=== PATIENT | female | born 1990 | race Caucasian/White ===

== ENCOUNTER → 2020-04-05 13:37 | Outpatient (BNVA) | payer MEDICAID, SELFPAY | PROVIDERS: Visit Provider Internal Medicine | DX: E10.65 Type 1 diabetes mellitus with hyperglycemia (principal); E78.5 Hyperlipidemia, unspecified; I10 Essential (primary) hypertension | CPT/HCPCS: 82947; 99212 ==

== ENCOUNTER 2020-07-09 14:10 | Outpatient (REF) | payer MEDICAID, SELFPAY ==
[2020-07-09 15:58] LABS: Estimated Average Glucose 154 mg/dL
[2020-07-09 16:13] LABS: Alanine Aminotransferase 12 U/L (0-31); Albumin Level 4.3 g/dL (3.5-5.0); Alkaline Phosphatase 98 U/L (39-117); Anion Gap 11 (12-20); Aspartate Amino Transferase 18 U/L (5-31); Bilirubin Total 0.7 mg/dL (0.0-1.0); Blood Urea Nitrogen 14 mg/dL (9-16); Calcium 9.5 mg/dL (8.4-10.2); Carbon Dioxide 28 mmol/L (22-29); Chloride 104 mmol/L (96-108); Cholesterol 204 mg/dL; Estimated Glomerular Filt Rate > 60; Glucose Random 135 mg/dL (60-115); HDL Cholesterol 51 mg/dL; LDL Cholesterol Calculated 140 mg/dl; Potassium 4.1 mmol/L (3.3-5.1); Sodium 139 mmol/L (135-145); Total Protein 7.7 g/dL (6.5-8.0); Triglycerides 68 mg/dL
[2020-07-09 16:36] LABS: Vitamin D 25-OH Total 21.6 ng/mL (>30)
[2020-07-09 16:41] LABS: Creatinine Urine 117.27 mg/dL; Microalbum/Creatinine Ratio Ur 5.9 ug/mg cr
[2020-07-10 05:32] LABS: LDL Cholesterol Direct 131 mg/dL (<100)
== END 2020-07-09 14:11 | disposition home or self-care (01) ==
LOC: HO.LAB 14:10
PROVIDERS: Visit Provider Internal Medicine
DX: E10.65 Type 1 diabetes mellitus with hyperglycemia (principal); E55.9 Vitamin D deficiency, unspecified; I10 Essential (primary) hypertension; E78.5 Hyperlipidemia, unspecified; Z46.81 Encounter for fitting and adjustment of insulin pump; Z79.899 Other long term (current) drug therapy; Z71.89 Other specified counseling
CPT/HCPCS: 36415; 80053; 80061; 82043; 82306; 82947; 83036; 83721; 99212

== ENCOUNTER 2020-08-07 14:25 | Outpatient (REF) | payer MEDICAID, SELFPAY ==
[2020-08-08 09:20] LABS: SARS COV2 PCR INHOUSE NEGATIVE (Negative)
== END 2020-08-07 14:26 | disposition home or self-care (01) ==
LOC: HO.LAB 14:25
PROVIDERS: Visit Provider Internal Medicine
DX: Z20.822 Contact with and (suspected) exposure to COVID-19 (principal)
CPT/HCPCS: C9803; U0003

== ENCOUNTER → 2020-10-15 13:38 | Outpatient (BNVA) | payer MEDICAID, SELFPAY | PROVIDERS: Visit Provider Internal Medicine | DX: E10.65 Type 1 diabetes mellitus with hyperglycemia (principal); E78.5 Hyperlipidemia, unspecified; I10 Essential (primary) hypertension; Z79.4 Long term (current) use of insulin | CPT/HCPCS: 82947; 83036; 99212 ==

== ENCOUNTER → 2021-08-21 13:54 | Outpatient (BNVA) | payer MEDICAID, SELFPAY | PROVIDERS: Visit Provider Internal Medicine Endocrinology, Diabetes & Metabolism | DX: E10.65 Type 1 diabetes mellitus with hyperglycemia (principal); Z96.41 Presence of insulin pump (external) (internal) | CPT/HCPCS: 82947; 83036; 99212 ==

== ENCOUNTER → 2021-12-11 13:59 | Outpatient (BNVA) | payer MEDICAID, SELFPAY | PROVIDERS: Visit Provider Registered Nurse Diabetes Educator | DX: Z46.81 Encounter for fitting and adjustment of insulin pump (principal); E10.65 Type 1 diabetes mellitus with hyperglycemia | CPT/HCPCS: 99211 ==

== ENCOUNTER → 2022-03-19 14:59 | Outpatient (BNVA) | payer MEDICAID, SELFPAY | PROVIDERS: Visit Provider Internal Medicine Endocrinology, Diabetes & Metabolism | DX: E10.65 Type 1 diabetes mellitus with hyperglycemia (principal); I10 Essential (primary) hypertension; E78.5 Hyperlipidemia, unspecified; E55.9 Vitamin D deficiency, unspecified; Z79.4 Long term (current) use of insulin; Z96.41 Presence of insulin pump (external) (internal); Z46.81 Encounter for fitting and adjustment of insulin pump | CPT/HCPCS: 82947; 83036; 99212 ==

== ENCOUNTER 2022-03-21 10:08 | Outpatient (REF) | payer MEDICAID, SELFPAY ==
[2022-03-21 12:36] LABS: Anion Gap 12 (12-20); Blood Urea Nitrogen 16 mg/dL (9-16); Calcium 9.4 mg/dL (8.4-10.2); Carbon Dioxide 27 mmol/L (22-29); Chloride 105 mmol/L (96-108); Cholesterol 191 mg/dL; Estimated Glomerular Filt Rate > 60; Glucose Random 118 mg/dL (60-115); HDL Cholesterol 46 mg/dL; LDL Cholesterol Calculated 127 mg/dl; Potassium 4.4 mmol/L (3.3-5.1); Sodium 140 mmol/L (135-145); Triglycerides 90 mg/dL
[2022-03-21 12:58] LABS: Estimated Average Glucose 148 mg/dL; Hemoglobin A1c % 6.8 %
[2022-03-21 13:00] LABS: Free T4 (Free Thyroxine) 0.97 ng/dL (0.71-1.85); Thyroid Stimulating Hormone 1.87 uIU/mL (0.32-4.0)
[2022-03-21 14:58] LABS: Creatinine Urine 102.46 mg/dL; Microalbumin Urine < 5.0 mg/L
== END 2022-03-21 10:09 | disposition home or self-care (01) ==
LOC: HO.WFDLDS 10:08
PROVIDERS: Visit Provider Internal Medicine Endocrinology, Diabetes & Metabolism
DX: E11.65 Type 2 diabetes mellitus with hyperglycemia (principal)
CPT/HCPCS: 36415; 80048; 80061; 82043; 83036; 84439; 84443

== ENCOUNTER → 2022-06-18 15:19 | Outpatient (BNVA) | payer MEDICAID, SELFPAY | PROVIDERS: Visit Provider Internal Medicine Endocrinology, Diabetes & Metabolism | DX: E10.65 Type 1 diabetes mellitus with hyperglycemia (principal); Z96.41 Presence of insulin pump (external) (internal) | CPT/HCPCS: 82947; 83036; 99212 ==

== ENCOUNTER 2023-03-04 14:55 | Outpatient (AMB) | payer MEDICAID, SELFPAY ==
--- NOTE | 2023-03-04 14:57 | A.OFFVIS_ITS ---
Intake Vital Signs 03/04/23 15:00 Height 5 ft 2.5 in Weight 195 lb 5.273 oz BMI 35.2 BP 104/76 Blood Pressure Location Lt brachial Position Sitting Pulse 111 H Pulse Source Pulse Oximeter Intake Visit Reasons: f/u Type 1 DM Intake Note: Patient presents today to follow up on Type Diabetes Mellitus. Last Diabetic Eye exam: 10/23/22 Last Podiatry Visit: None Random Glucose: 226 mg/dl HgA1C:6.8% Supervisor [place] Required: No Accompanied by: Self / Same As Patient Allergies dexamethasone [From DECADRON] Adverse Reaction (Intermediate, Verified 03/04/23 15:09) BURNING SENSATION HPI HPI Comments History of Present Illness Details 32 YO F with PMHx T1DM who is seen in F/U for T1DM . Initially diagnosed with T1DM at the age of 3. Current regimen: Humalog in pump Pump/Sensor: Currently using Tandem insulin pump with Dexcom G6 sensor. Pump settings: Basal: 0:00 - 1.8 units/hr 5:30 - 1.8 units/hr 130PM= 2.1 23:00 - 1.7 units/hr Total Daily Basal =60.1 units ICR: 10 ISF: 40 Goal : 120 Active insulin time: 3 hours Average total daily dose of insulin is 56.5 units/day, with 67% basal and 33% bolus. and 4% correction bolus She changes her site every 3-4 days. Has the DEXCOM G6. 7 days of data downloaded from February 09/2023 to 03/04/2023 This reveals an average sugar of 137 , with SD of 52. . She is above goal 13% of the time, at goal 78% of the time, and below goal 3% of the time. Has hypoglycemia every 2 days Treats lows with rapid sugar. Has DEXCOM to check sugar after. Has a history of hypoglycemic unawareness. Review of CGM data reveals that she is having many lows overnight, and often bolusing herself long after she starts eating which leads to daytime hyperglycemia. Has eyes checked yearly, last eye exam 10/23/2022 , denies retinopathy. Has consistently refused since then. Denies Neuropathy. Has Nephropathy, not on ALEXSANDER/ARB as she is actively having children. UAC 5.9 07/09/2020. No history of CAD. Had diabetes education. Has not been using bolus wizard correctly. Does know how to count carbs. She has had severe hypoglycemic episodes, most recently in 2019. Labs: Laboratory Tests 07/09/20 07/09/20 07/09/20 15:41 15:41 15:41 Creatinine 0.91 Estimated GFR > 60 Glucose (Clinic) Hgb A1c (Clinic) LDL Cholesterol Di rect 131 H 25-OH Vitamin D To kim 21.6 Microalb/Creat Rat io 5.9 10/15/20 10/15/20 13:55 14:04 Creatinine Estimated GFR Glucose (Clinic) 344 H Hgb A1c (Clinic) 7.0 H LDL Cholesterol Di rect 25-OH Vitamin D To kim Microalb/Creat Rat io PFSH Medical History HLD (hyperlipidemia) HTN (hypertension) T1DM (type 1 diabetes mellitus) Vitamin D deficiency Surgical History Hx of tooth extraction Family History Father No problems noted. Mother CTS (carpal tunnel syndrome) Social History Household Members: Children Household Members Other:: daughter Alcohol intake: former Patient Tobacco Use Status: Former Tobacco user Physical Exam Vital Signs: Last Vital Signs Pulse 111 H 03/04/23 15:00 BP 104/76 03/04/23 15:00 BMI result Body Mass Index 35.2 Absence of Cushingoid features. Absence of acromegalic features. Neck exam reveals nl size thyroid about 15 gms. No thyroid nodules palpable. No carotid bruits present. Lungs CTA. Heart S1 S2, Reg R/R. No M/R/ G. Skin exam reveals absence of vitiligo or acanthosis nigricans. Abdominal exam reveals Soft NT/ND with NA BS. No organomegaly present. Extrem Other: Visual exam of foot performed. No ulcerations or open lesions. No onchomycosis, no callouses.Pulses 2 + distally. Sensation intact to monofilament exam. Vibratory sensation sensed 10 seconds in right, 10 seconds in left with 128 Hz tuning fork Results Reviewed Results Reviewed: 03/04/23 15:06 Glucose, Whole Blood Routine Laboratory Last Values Glucose (Clinic) 226 mg/dL (60-115) H 03/04/23 15:06 Assessment & Plan Assessment & Plan (1) T1DM (type 1 diabetes mellitus): Code(s): E10.9 - Type 1 diabetes mellitus without complications Qualifiers: Diabetes mellitus complication status: with hyperglycemia Qualified Code(s): E10.65 - Type 1 diabetes mellitus with hyperglycemia Plan: This is a 31-year-old female with a history of type 1 diabetes being t reated with an Omnipod pump and Dexcom G6 sensor with excellent glycemic control but hypoglycemia and no known microvascular or macrovascular complications. Plan is to have the patient wear the sensor more often. We could not make any adjustments to the pump settings because of lack of data. I did tell the patient to enter carbohydrates and bolus prior to the meal. I also will have a follow-up with the unit educator and see the electron beam welder setter to fine tune carbohydrate counting. Lastly, I refilled glucagon nasal spray. Orders: Referrals Nutrition/Dietitian Referral E10.9 - Type 1 diabetes mellitus without complications Medications: New insulin glargine (Lantus Solostar U-100 Insulin) 40 units (0.4 mL) subcut DAILY 30 mL 5RF glucagon 3 mg/actuation (Baqsimi) 3 mg intranasal ONCE 2 ea 4RF Coding Level of Care Code Est Pt Level 4 (46725) Diagnoses Type 1 diabetes mellitus with hyperglycemia E10.65 Diabetes mellitus complication status: with hyperglycemia
[2023-03-04 15:00] VITALS: BP 104/76; PULSE 111; BMI 35.2
[2023-03-04 15:11] LABS: Glucose, Whole Blood 226 mg/dL (60-115)
== END 2023-03-04 15:47 | disposition home or self-care (01) ==
PROVIDERS: PCP Registered Nurse; Visit Provider Internal Medicine Endocrinology, Diabetes & Metabolism
DX: E10.9 Type 1 diabetes mellitus without complications (principal); E10.65 Type 1 diabetes mellitus with hyperglycemia
CPT/HCPCS: 99214

== ENCOUNTER → 2023-03-04 14:55 | Outpatient (BNVA) | payer MEDICAID, SELFPAY | PROVIDERS: Visit Provider Internal Medicine Endocrinology, Diabetes & Metabolism | DX: E10.65 Type 1 diabetes mellitus with hyperglycemia (principal); Z96.41 Presence of insulin pump (external) (internal) | CPT/HCPCS: 82947; 83036; 99212 ==

== ENCOUNTER 2023-05-06 13:25 | Outpatient (AMB) | payer MEDICAID, SELFPAY ==
--- NOTE | 2023-05-06 13:27 | A.OFFVIS_ITS ---
Intake VS Expanded 05/06/23 13:31 05/13/23 13:06 Height 5 ft 2.5 in 5 ft 2.5 in Weight 190 lb 0.615 oz 190 lb BMI 34.2 34.2 Intake Visit Reasons: f/u Type1 DM/CONFIRMED Allergies dexamethasone [From DECADRON] Adverse Reaction (Intermediate, Verified 03/04/23 15:09) BURNING SENSATION HPI Nutrition Presentation Details Pt presents for MNT for Type 1 DM Typical meal intake Tea in am , no sugar added 03-15 3 small croissant with bologna a nd 2 eggs snack: apple, dinner roll with butter or plain and drinks water 5-7 pm : home made meal or fast food : fried chicken breaded with fries, diet s patricia or water or rice/medina/chicken or chicken salad with vegetables or bk fries with burger snack: ice cream or fruit or crackers with p.b or cereal not carb counting physical activity: daily life activities ETOH: occ smoking denies YFM-Uzdvgzo-Lb.Jeor Equation Height 5 ft 2.5 in Weight 190 lb Resting Metabolic Rate 1539.63 Calculated Activity Level Sedentary Calories Needed to Maintain Weight 1847.56 Diagnosis Nutrition problem #1 excessive energy intake (from high fat foods ) As related to (etiology) #1 diagnosis (Type 1 DM, BMI at 34.2 on 05/2023) As evidenced by (sign/symptom) #1 food recall Monitoring/Goals Nutrition problem monitoring weight (low fat food choices ) Learning/Education Readiness to learn good Stages of change preparation Educational materials provided Yes (meal planning , low fat food options) Most Recent Diabetes Results: Microalb/Creat Ratio TNP 03/21/22 Cholesterol 191 mg/dL 03/21/22 HDL Cholesterol 46 mg/dL 03/21/22 Triglycerides 90 mg/dL 03/21/22 Creatinine 0.83 mg/dL (0.5-1.4) 03/21/22 Blood Urea Nitrogen 16 mg/dL (9-16) 03/21/22 Sodium 140 mmol/L (135-145) 03/21/22 Potassium 4.4 mmol/L (3.3-5.1) 03/21/22 Chloride 105 mmol/L (96-108) 03/21/22 Carbon Dioxide 27 mmol/L (22-29) 03/21/22 Calcium 9.4 mg/dL (8.4-10.2) 03/21/22 [facility] Medical History HLD (hyperlipidemia) HTN (hypertension) T1DM (type 1 diabetes mellitus) Vitamin D deficiency Surgical History Hx of tooth extraction Family History Father No problems noted. Mother CTS (carpal tunnel syndrome) Social History Household Members: Children Household Members Other:: daughter Alcohol intake: former Patient Tobacco Use Status: Former Tobacco user Assessment & Plan Assessment & Plan (1) T1DM (type 1 diabetes mellitus): Code(s): E10.9 - Type 1 diabetes mellitus without complications Qualifiers: Diabetes mellitus complication status: with hyperglycemia Qualified Code(s): E10.65 - Type 1 diabetes mellitus with hyperglycemia Plan: Wt: 86 Kg ( ) Est kcal needs as per MSJ: 1800 (40% carb, 30% protein/fat) Est fluid needs as per 25-30 ml/d: 2600 Est prot per day as per 1 g/kg bw: 86 Recommend fiber intake : 8-10 g per day and gradually increase to 25-28 g per day for women and 35-38 g for men or as tolerated Recommend sodium intake per day : less than 2000 mg Educated patient on: ( R = reviewed V = verbalizes understanding N/R = needs review N/A = not applicable * Food sources of carbohydrate, adequate serving sizes and its role in various health conditions: V * Differences between complex carbohydrates a simple carbohydrates, role of fiber in diet: V * Lean protein sources of foods: R V * Differences between types of fats and role in diet (mono on saturated fat fatty acids, saturated fatty acids, trans fats): R * Food sources of sodium in salt and healthy modifications for heart health in kidney health: NR * Vitamins and minerals: R * Healthy plate method concept: R V * Physical activity: Benefits a precaution: R V * Hypoglycemia protocol (rule of 15): V * Dietary prevention of Hyperglycemia: V Patient Instructions: Reduce on saturated /trans fats (ultra processed foods, sauces, gravies, butter, fried foods) Keep hydrated by choosing water, fruit/veg/herb infused water, aim at 5-6 cups/day see low fat meal /snack options Coding Level of Care Code Nutr Indiv Intake (55313) Diagnoses Type 1 diabetes mellitus with hyperglycemia E10.65 Diabetes mellitus complication status: with hyperglycemia Time Spent (min) 30
[2023-05-06 13:31] VITALS: BMI 34.2
[2023-05-13 13:06] VITALS: BMI 34.2
== END 2023-05-06 13:54 | disposition home or self-care (01) ==
PROVIDERS: PCP Registered Nurse; Visit Provider Dietitian, Registered
DX: E10.65 Type 1 diabetes mellitus with hyperglycemia (principal)

== ENCOUNTER → 2023-05-06 13:25 | Outpatient (BNVA) | payer MEDICAID, SELFPAY | PROVIDERS: PCP Registered Nurse; Visit Provider Dietitian, Registered | DX: E10.65 Type 1 diabetes mellitus with hyperglycemia (principal) | CPT/HCPCS: 97802 ==

== ENCOUNTER 2023-05-08 12:59 | Outpatient (AMB) | payer MEDICAID, SELFPAY ==
--- NOTE | 2023-05-08 13:40 | MHC.AMDMED ---
Intake Intake Visit Reasons: T1DM /CONFIRMED Noc Analyst Required: No Accompanied by: Self / Same As Patient Allergies dexamethasone [From DECADRON] Adverse Reaction (Intermediate, Verified 03/04/23 15:09) BURNING SENSATION HPI Comprehensive Diabetes Asmnt Most Recent Diabetes Results: Hemoglobin A1c 6.7 % 09/06/18 Microalb/Creat Ratio TNP 03/21/22 Cholesterol 191 mg/dL 03/21/22 HDL Cholesterol 46 mg/dL 03/21/22 Triglycerides 90 mg/dL 03/21/22 Creatinine 0.83 mg/dL (0.5-1.4) 03/21/22 Blood Urea Nitrogen 16 mg/dL (9-16) 03/21/22 Sodium 140 mmol/L (135-145) 03/21/22 Potassium 4.4 mmol/L (3.3-5.1) 03/21/22 Chloride 105 mmol/L (96-108) 03/21/22 Carbon Dioxide 27 mmol/L (22-29) 03/21/22 Calcium 9.4 mg/dL (8.4-10.2) 03/21/22 AST 18 U/L (5-31) 07/09/20 ALT 12 U/L (0-31) 07/09/20 Total Protein 7.7 g/dL (6.5-8.0) 07/09/20 Albumin 4.3 g/dL (3.5-5.0) 07/09/20 [facility] Medical History HLD (hyperlipidemia) HTN (hypertension) T1DM (type 1 diabetes mellitus) Vitamin D deficiency Surgical History Hx of tooth extraction Family History Father No problems noted. Mother CTS (carpal tunnel syndrome) Social History Household Members: Children Household Members Other:: daughter Alcohol intake: former Patient Tobacco Use Status: Former Tobacco user Assessment & Plan Assessment & Plan (1) T1DM (type 1 diabetes mellitus): Code(s): E10.9 - Type 1 diabetes mellitus without complications Qualifiers: Diabetes mellitus complication status: with hyperglycemia Qualified Code(s): E10.65 - Type 1 diabetes mellitus with hyperglycemia Plan: Patient presents for pump training for T-Slim pump with control IQ integrated with Dexcom G6 The following topics were reviewed today: -Pump therapy basic concepts: Basal/bolus, insulin to carb ratio, correction factor, insulin on board - upgraded insulin pump to be compatible with Dexcom G7 ??? High Alert: 200mg/dl ??? Low Alert: 80 mg/dl Patient only has 4 days worth of sensor data patient changing insulin set an average of 4.5 days 79% of insulin is delivered through basal 16% is delivered through bolus for meals 5% correction bolus reviewed with patient how to treat low blood sugar with rule of 15s Reviewed with patient basic carb counting skills, downloaded [employer] it [place] on patient's cellphone. Demonstrated to patient how to look up carbohydrate content of foods Insulin delivery settings Program insulin to carb ratio, correction factor, target blood glucose, suspend or resume insulin delivery, bolus limit and basal limit settings Inserting infusion set or starting pod Troubleshooting after starting new pod or inserting new insulin set: Occlusion, adhesive tape sensitivity, redness Check BG 2 hours after site change Safety information: Patient was able to insert insulin set today without difficulty. Patient understands the basic concepts of pump therapy, how to give insulin for meals and snacks, how to troubleshoot for hyper and hypoglycemia. Setting verified by [facility] Basal rate(s) (units/hour) : 12 AM to 5:30 AM? 1.8 units / hr 5:30 AM? to 1:30 PM? 1.8 units / hr 1:30 PM to 9:30 PM 2.10 units / hr 9:30 PM to 12 AM 1.9 units / hr Bolus setting Insulin Carbohydrate Ratio (s) 12 AM to 12 AM 1:10 Correction Factor / Sensitivity Factor 12 AM to 12 AM 1:40 Active Insulin Time:? 3 hours Target(s): 12 AM to 12 AM 120 Patient will follow up with [facility] as instructed Patient will contact [facility] with questions or concerns, patient given IT number to support in any technical issues related to insulin pump Patient Instructions: If patient brings tandem log in information we can upgrade patient's insulin pump at next visit to be compatible with Dexcom G7 Follow-up with clinical trial educator in 1 month Coding Level of Care Code Est Pt Level 1 (63933) Diagnoses Type 1 diabetes mellitus with hyperglycemia E10.65 Diabetes mellitus complication status: with hyperglycemia
== END 2023-05-08 13:50 | disposition home or self-care (01) ==
PROVIDERS: PCP Registered Nurse; Visit Provider Registered Nurse Diabetes Educator
DX: E10.65 Type 1 diabetes mellitus with hyperglycemia (principal)

== ENCOUNTER → 2023-05-08 12:59 | Outpatient (BNVA) | payer MEDICAID, SELFPAY | PROVIDERS: PCP Registered Nurse; Visit Provider Registered Nurse Diabetes Educator | DX: Z46.81 Encounter for fitting and adjustment of insulin pump (principal); E10.65 Type 1 diabetes mellitus with hyperglycemia; Z79.4 Long term (current) use of insulin | CPT/HCPCS: 99211 ==

== ENCOUNTER 2023-06-15 13:03 | Outpatient (AMB) | payer MEDICAID, SELFPAY ==
--- NOTE | 2023-06-15 13:43 | A.OFFVIS_ITS ---
Intake Intake Visit Reasons: T1DM It Sales Executive Required: No Accompanied by: Other Relationship Allergies dexamethasone [From DECADRON] Adverse Reaction (Intermediate, Verified 03/04/23 15:09) BURNING SENSATION HPI Comprehensive Diabetes Asmnt Most Recent Diabetes Results: No Data to Display [facility] Medical History HLD (hyperlipidemia) HTN (hypertension) T1DM (type 1 diabetes mellitus) Vitamin D deficiency Surgical History Hx of tooth extraction Family History Father No problems noted. Mother CTS (carpal tunnel syndrome) Social History Household Members: Children Household Members Other:: daughter Alcohol intake: former Patient Tobacco Use Status: Former Tobacco user Assessment & Plan Assessment & Plan (1) T1DM (type 1 diabetes mellitus): Code(s): E10.9 - Type 1 diabetes mellitus without complications Qualifiers: Diabetes mellitus complication status: with hyperglycemia Qualified Code(s): E10.65 - Type 1 diabetes mellitus with hyperglycemia Plan: Patient presents for pump training for T-Slim pump with control IQ integrated with Dexcom [employer] The following topics were reviewed today: -Pump therapy basic concepts: Basal/bolus, insulin to carb ratio, correction factor, insulin on board - upgraded insulin pump to be compatible with Dexcom G7 ??? High Alert: 200mg/dl ??? Low Alert: 80 mg/dl Patient's average glucose for the past 14 days 138 mg/dL Patient above target 21% Patient at target 73% Patient below target 6% Discussed with patient percentage hypoglycemic events, patient reports she has caused several I taking manual injections not correcting through insulin pump. Demonstrate to patient how she can calculate her own correction dose if she does not have access to insulin pump. Reviewed with patient how to treat hypoglycemia with rule of 15s Patient still has not upgraded insulin pump to Dexcom G7 patient changing insulin set an average of 4-6 days, explained to patient the importance of changing insulin delivery set every 72 hours for optimal glucose control 59% of insulin is delivered through basal 36% is delivered through bolus for meals 4% correction bolus reviewed with patient how to treat low blood sugar with rule of 15s Reviewed with patient basic carb counting skills, downloaded lose it [place] on patient's cellphone. Demonstrated to patient how to look up carbohydrate content of foods Insulin delivery settings Program insulin to carb ratio, correction factor, target blood glucose, suspend or resume insulin delivery, bolus limit and basal limit settings Inserting infusion set or starting pod Troubleshooting after starting new pod or inserting new insulin set: Occlusion, adhesive tape sensitivity, redness Check BG 2 hours after site change Safety information: Patient was able to insert insulin set today without difficulty. Patient understands the basic concepts of pump therapy, how to give insulin for meals and snacks, how to troubleshoot for hyper and hypoglycemia. Setting verified by [facility], no changes made to pump settings Basal rate(s) (units/hour) : 12 AM to 5:30 AM? 1.8 units / hr 5:30 AM? to 1:30 PM? 1.8 units / hr 1:30 PM to 9:30 PM 2.10 units / hr 9:30 PM to 12 AM 1.9 units / hr Bolus setting Insulin Carbohydrate Ratio (s) 12 AM to 12 AM 1:10 Correction Factor / Sensitivity Factor 12 AM to 12 AM 1:40 Active Insulin Time:? 3 hours Target(s): 12 AM to 12 AM 120 Patient will follow up with [facility] as instructed Patient will contact [facility] with questions or concerns, patient given IT number to support in any technical issues related to insulin pump Patient Instructions: Follow-up with hospital educator in 3 months If you need assistance in upgrading insulin pump to be compatible with Dexcom G7 contact hospital educator Coding Level of Care Code Est Pt Level 1 (58662) Diagnoses Type 1 diabetes mellitus with hyperglycemia E10.65 Diabetes mellitus complication status: with hyperglycemia
[2023-06-16 06:25] LABS: Glucose, Whole Blood 79 mg/dL (60-115)
[2023-06-16 06:26] LABS: Glucose, Whole Blood 47 mg/dL (60-115)
== END 2023-06-15 13:45 | disposition home or self-care (01) ==
PROVIDERS: PCP Registered Nurse; Visit Provider Registered Nurse Diabetes Educator
DX: E10.65 Type 1 diabetes mellitus with hyperglycemia (principal)

== ENCOUNTER → 2023-06-15 13:03 | Outpatient (BNVA) | payer MEDICAID, SELFPAY | PROVIDERS: PCP Registered Nurse; Visit Provider Registered Nurse Diabetes Educator | DX: E10.65 Type 1 diabetes mellitus with hyperglycemia (principal) | CPT/HCPCS: 82947; 97803; 99211 ==

== ENCOUNTER 2023-06-15 13:44 | Outpatient (AMB) | payer MEDICAID, SELFPAY ==
[2023-06-15 13:23] VITALS: BMI 34.2
--- NOTE | 2023-06-15 13:54 | A.OFFVIS_ITS ---
Intake VS Expanded 06/15/23 13:23 Height 5 ft 2.5 in Weight 190 lb 4.2 oz BMI 34.2 Intake Visit Reasons: T1DM/CONFIRMED Allergies dexamethasone [From DECADRON] Adverse Reaction (Intermediate, Verified 03/04/23 15:09) BURNING SENSATION HPI Nutrition Presentation0 Details Pt presents for MNT for T1DM Pt reports working on including a variety of foods, and trying new foods new flavors. Not carb counting, but doing estimations fruits: 1-2/d + diluted juices with water 2 x/day vegetables: 2serving/d starches > 20 serving dairy: varies (almond, soy, pea, cows milk , cheese)> 2 serving/d fish: 1x/wk, poultry/beefx/wk, fried foods 2 x/wk - works at fast [employer] rest water: 8 oz , choosing diet or low sugar beverages> 32 oz/d coffee 1-2 x/d physical activity: walking > 2 hr per day Most Recent Diabetes Results: No Data to Display [facility] Medical History HLD (hyperlipidemia) HTN (hypertension) T1DM (type 1 diabetes mellitus) Vitamin D deficiency Surgical History Hx of tooth extraction Family History Father No problems noted. Mother CTS (carpal tunnel syndrome) Social History Household Members: Children Household Members Other:: daughter Alcohol intake: former Patient Tobacco Use Status: Former Tobacco user Assessment & Plan Assessment & Plan (1) T1DM (type 1 diabetes mellitus): Code(s): E10.9 - Type 1 diabetes mellitus without complications Qualifiers: Diabetes mellitus complication status: with hyperglycemia Qualified Code(s): E10.65 - Type 1 diabetes mellitus with hyperglycemia Plan: Wt: 86 Kg ( ), 86 kg (06/2023) Est kcal needs as per MSJ: 1800 (40% carb, 30% protein/fat) Est fluid needs as per 25-30 ml/d: 2600 Est prot per day as per 1 g/kg bw: 86 Recommend fiber intake : 8-10 g per day and gradually increase to 25-28 g per day for women and 35-38 g for men or as tolerated Recommend sodium intake per day : less than 2000 mg Educated patient on: ( R = reviewed V = verbalizes understanding N/R = needs review N/A = not applicable * Food sources of carbohydrate, adequate serving sizes and its role in various health conditions: V * Differences between complex carbohydrates a simple carbohydrates, role of fiber in diet: V * Lean protein sources of foods: R V * Differences between types of fats and role in diet (mono on saturated fat fatty acids, saturated fatty acids, trans fats): R * Food sources of sodium in salt and healthy modifications for heart health in kidney health: R * Vitamins and minerals: R * Healthy plate method concept: R V * Physical activity: Benefits a precaution: R V * Hypoglycemia protocol (rule of 15): V * Dietary prevention of Hyperglycemia: V Patient Instructions: Keep hydrated by having water with meals/snacks follow healthy plate method as you continue to choose a variety of foods and trying new foods Choose lower fat options (baked, steamed vs fried, reduce on batters, reduce on amount of sauces, dressings Coding Level of Care Code Nutr Indiv Subseq (47147) Diagnoses Type 1 diabetes mellitus with hyperglycemia E10.65 Diabetes mellitus complication status: with hyperglycemia Time Spent (min) 20
== END 2023-06-15 14:00 | disposition home or self-care (01) ==
PROVIDERS: PCP Registered Nurse; Visit Provider Dietitian, Registered
DX: E10.65 Type 1 diabetes mellitus with hyperglycemia (principal)

== ENCOUNTER 2024-08-15 10:31 | Outpatient (REF) | payer MEDICAID, SELFPAY ==
[2024-08-15 11:56] LABS: Platelet Count 405 X10*3/uL (160-400)
[2024-08-15 12:46] LABS: Alanine Aminotransferase 11 U/L (0-31); Albumin Level 4.4 g/dL (3.5-5.0); Alkaline Phosphatase 87 U/L (39-117); Anion Gap 9 (12-20); Aspartate Amino Transferase 21 U/L (5-31); Bilirubin Total 0.7 mg/dL (0.0-1.0); Blood Urea Nitrogen 11 mg/dL (9-16); Calcium 9.8 mg/dL (8.4-10.2); Carbon Dioxide 28 mmol/L (22-29); Chloride 106 mmol/L (96-108); Cholesterol 217 mg/dL (<200); Estimated Glomerular Filt Rate > 60; Glucose Random 78 mg/dL (60-115); HDL Cholesterol 55 mg/dL (>40); LDL Cholesterol Calculated 151 mg/dL (<100); Potassium 4.1 mmol/L (3.3-5.1); Sodium 139 mmol/L (135-145); Triglycerides 58 mg/dL (<150)
[2024-08-15 12:54] LABS: Creatinine Urine 21.21 mg/dL; Microalbumin Urine < 5.0 mg/L
[2024-08-15 13:11] LABS: TSH reflex Free T4 1.68 uIU/mL (0.32-4.0)
--- OUTSIDE RECORDS SUMMARY | 2024-08-15 13:29 | XMS_ITS | Clinical Summary ---
Author Organization [employer] Address [address] [facility] 7t [place] [address] Care Team Providers Care Managed Security Sales Consultant Name Role Phone JorjeSuly SANJUANA Primary Care Provider [phone] Allergies Active Allergy Reactions Criticality Noted Date [...] mellitus 07/23/2017 Overview (02/04/2023): Care managed by [facility] Endo Dexcom 6, Insulin pump with insulin [...] Team Description 07/15/2024 Population Health Risk Score [facility] () Department [address] [place] [address] [phone] Provider, Population Health Generic from Last 3 [...] the past 12 months, has t he [employer], gas, oil or water company threatened to [...] Procedure Name Priority Date/Time Associated Diagnosis Comments [facility] HISTORICAL MICROALBUMIN/CREATIN INE RATIO, RANDOM URINE Routine 03/21/2022 10:15 AM EST [facility] HISTORICAL HEMOGLOBIN A1C Routine 03/21/2022 10:15 AM EST [facility] HISTORICAL LIPID PANEL Routine 07/09/2020 [...] average glucose, using the formula of the [id number] Average Glucose study (ADAG), Diabetes Care, Vol.31,#8, [...] to ?190 mg/dL Triglycerides 68 mg/dL [facility] Comment: Desirable Triglyceride: ? less than 150 mg/dL Borderline High Triglyceride ??150-199 mg/dL High Triglyceride: ?200-499 mg/dL Very High Triglyceride: ? greater than or equal to ? 5OO mg/dL Alanine Aminotransferase 12 0 - 31 U/L [facility] Albumin Level 4.3 3.5 - 5.0 g/dL [facility] Alkaline Phosphatase 98 39 - 117 U/L [facility] Anion Gap 11(L) 12 - 20 [facility] Comment: Aspartate Amino Transferase 18 5 - 31 U/L [facility] Bilirubin Total 0.7 0.0 - 1.0 mg/dL [facility] Blood Urea Nitrogen 14 9 - 16 mg/dL [facility] Calcium 9.5 8.4 - 10.2 mg/dL [facility] Carbon Dioxide 28 22 - 29 mmol/L [facility] Chloride 104 96 - 108 mmol/L [facility] Creatinine, Serum 0.91 0.5 - 1.4 mg/dL [facility] Estimated Glomerular Filt Rate >60 [facility] Comment: NOTE: ??For -Greek individuals, multiply the result ?by 1.210. ?? Chronic Kidney Disease: ??Estimated GFR < 60 mL/min/1.73m2 Severe Kidney Disease: ??Estimated GFR < 15 mL/min/1.73m2 Glucose Random 135(H) 60 - 115 mg/dL [facility] Potassium 4.1 3.3 - 5.1 mmol/L [facility] Sodium 139 135 - 145 mmol/L [facility] Total Protein 7.7 6.5 - 8.0 g/dL [facility] 07/09/2020 3:41 PM EST us Historical Provider HISTORICAL/NON ORDERABLE LABS Final Result [facility] [address] from Last 3 Months or Most Recently Relevant to Health Maintenance Insurance [employer] C3 Care Teams Managed Security Sales Consultant Relationship Specialty Start Date End Date Suly Recinos NP [address] [place] [id number] PCP - General Family Medicine 10/19/23
== END 2024-08-15 10:32 | disposition home or self-care (01) ==
LOC: HO.LAB 10:31
PROVIDERS: PCP Registered Nurse; Visit Provider Student in an Organized Health Care Education/Training Program
DX: E10.65 Type 1 diabetes mellitus with hyperglycemia (principal); E78.5 Hyperlipidemia, unspecified; Z79.4 Long term (current) use of insulin
CPT/HCPCS: 36415; 80053; 80061; 82043; 82570; 82947; 83036; 84443; 85049; 99212

== ENCOUNTER 2024-08-15 10:31 | Outpatient (AMB) | payer MEDICAID, SELFPAY ==
--- NOTE | 2024-08-15 10:33 | A.OFFVIS_ITS ---
Vital Signs 3 08/15/24 10:36 Height 5 ft 2 in Weight 206 lb 12.697 oz BMI 37.8 BP 98/68 Blood Pressure Location Lt brachial Position Sitting Pulse 77 Pulse Source Pulse Oximeter Pulse Oximetry (%) 98 Oxygen Delivery Method Room Air Intake Visit Reasons: T1DM Intake Note: Patient present today to follow up on Type 1 Diabetes Mellitus. Last Diabetic Eye exam: 08/2023 Last Podiatry Visit: Doesn't have one Random Glucose:124 mg/dl HgA1C: 6.8% Marketing Systems Manager Required: No Accompanied by: Self / Same As Patient Allergies dexamethasone [From DECADRON] Adverse Reaction (Intermediate, Verified 08/15/24 10:38) BURNING SENSATION Medication List - Last Reconciled 08/15/24 by Zehra Early MD blood sugar diagnostic (FreeStyle Lite Strips) As directed 4 times a day blood-glucose meter (FreeStyle Lite Meter kit) As directed blood-glucose sensor (Dexcom G6 Sensor device) As directed blood-glucose transmitter (Dexcom G6 Transmitter device) As directed blood-glucose,recording artist,cont (Dexcom G6 Band And Cuff Cutter) As directed glucagon 3 mg/actuation (Baqsimi) 3 mg intranasal ONCE glucagon 3 mg/actuation (Baqsimi) 3 mg intranasal ONCE ibuprofen 800 mg PO Q8H PRN insulin glargine (Lantus Solostar U-100 Insulin) 40 units (0.4 mL) subcut DAILY insulin lispro infuse up to 150 units via insulin pump daily subcutaneously daily; insulin syringe-needle U-100 (Easy Touch Insulin Syringe) As directed injects 4 X/day HPI Comments Details: 33 YO F with PMHx T1DM who is seen in F/U for T1DM . She was previously seeing Dr. Turner, last visit was March 2023, has not come to recent follow up. HPI from prior visit Initially diagnosed with T1DM at the age of 3. Current regimen: Humalog u -100 in pump Pump/Sensor: Currently using Tandem insulin pump with Dexcom G6 sensor. fasting 124 mg/dl today A1c POC 08/15/24 6.8 % She changes her site every 3-4 days. Has the DEXCOM G6. Two weeks of data downloaded Pump and CGM data downloaded from August 02 to 08/15/2024, G mi 6.9% Average glucose 149 mg/dL Time CGM active 92 % Standard deviation 53 mg/dL CV 35.6% Within target range 78% High 17% Very high 4% Low 1% Very low 0% Interpretation of CGM data: She has on a few days high readings between 03:00 and 06:00 but this is not consistently present. Other days she is noted to have hyperglycemia postprandially, however seems she is not bolusing on time. Control IQ use a84% of the time. Some days she is not entering carbs. Insulin usage Basal per day: 35 units, 64% Bolus per day 19.5 units, 36% Total insulin per day 54.4 units Pump settings: Basal: 0:00 - 1.3 units/hr 5:30 - 1.9 units/hr 130PM= 2.1 9 30 PM - 1.3 units/hr Total Daily Basal =42.4 u/hr units ICR: 10 ISF: 40 Goal : 120 Active insulin time: 3 hours Review of CGM data reveals that she is having many lows overnight, and often bolusing herself long after she starts eating which leads to daytime hyperglycemia. Has eyes checked yearly, last eye exam 08/25 , denies retinopathy. Denies Neuropathy. Has Nephropathy per past urine microalbumin, not done recently , not on ALEXSANDER/ARB . No history of CAD. severe hypoglycemic episodes: last in 2019. none recently No hospitalizations with DKA on Insulin pump HAs baqsimi Prescribed urine ketone strips today HAs backup lantus Prescribed syringes today Needs upgrade to G7, messaged staff Exercise : 2 hr walks 3 times a week BMI 37 .8 , weight 206 lbs weight stable in the last 4 years Diet : BF 10 or 11 am Dinner 4 to 6 pm Then she fasts at night Physical exam General: sitting comfortably in no acute distress HEENT: normocephalic/atraumatic Neck: supple Cardiac: normal heart sounds Pulm: normal breath sounds B/L, no added breath sounds Abd: not distended, no tenderness Extremities: no edema, no signs of myxedema Foot exam: intact sensation to monofilament, intact pulses, intact vibration Labs: Laboratory Tests Laboratory Tests 03/21/22 03/04/23 10:15 15:49 Hgb A1c (Clinic) 6.8 H TSH 1.87 Urine Creatinine 102.46 Urine Microalbumin < 5.0 [facility] Medical History (Updated 08/15/24 @ 11:44 by Zehra Early MD) Obesity (BMI 30-39.9) Insulin pump in place Vitamin D deficiency HLD (hyperlipidemia) HTN (hypertension) T1DM (type 1 diabetes mellitus) Surgical History Hx of tooth extraction Family History Father No problems noted. Mother CTS (carpal tunnel syndrome) Social History Household Members: Children Household Members Other:: daughter Alcohol intake: former Patient Tobacco Use Status: Former Tobacco user Physical Exam Vital Signs: Last Vital Signs Pulse 77 08/15/24 10:36 BP 98/68 08/15/24 10:36 Pulse Ox 98 08/15/24 10:36 Oxygen Delivery Method Room Air 08/15/24 10:36 BMI result Body Mass Index 37.8 Office Procedures Glucose Monitoring Details Details: see [facility] [id number] - Glucose monitoring, continuous-physician I&R Procedure code (CPT) selection complete Results AMB Hemoglobin A1c 2 AMB Hemoglobin A1c 6.8 % Last Edit by HONG Boyd on 08/15/24 10:57 Results Reviewed Results Reviewed: Laboratory Last Values Glucose (Clinic) 124 mg/dL (60-115) H 08/15/24 10:42 Assessment & Plan Assessment & Plan (1) T1DM (type 1 diabetes mellitus): Code(s): E10.9 - Type 1 diabetes mellitus without complications Category: Medical Qualifiers: Diabetes mellitus complication status: with hyperglycemia Qualified Code(s): E10.65 - Type 1 diabetes mellitus with hyperglycemia Plan: 33-year-old female with a history of type 1 diabetes mellitus diagnosed at age 3, coming in today for follow up. She has not had a follow up in over 1-1/2 years. She is currently on tandem T slim insulin pump with Dexcom G6 sensor. Using Humalog U 100 with the pump. Pump data downloaded: She has on a few days high readings between 03:00 and 06:00 but this is not consistently present. Other days she is noted to have hyperglycemia postprandially, however seems she is not bolusing on time. Control IQ use84% of the time. Some days she is not entering carbs at all. Provided education about importance of bolusing on time and correctly. I think this would help her control, I am not making any other changes to her pump. I think she would also benefit with an upgrade to G7 sensor. I am having her schedule a follow up with the hospice educator. She gets her pump supplies through [facility], messaging staff to see if script needs to be sent over Plan: -continue current pump settings -due for eye visit, no history of retinopathy -Foot exam done today was unremarkable -Ordered labs to be updated urine microalbumin, CMP, platelets, lipid panel, TSH -Follow up with the educator, plan for upgrade to G7 sensor -Educated about importance of pre bolusing and entering carbs -Hypoglycemia education done (2) HLD (hyperlipidemia): Code(s): E78.5 - Hyperlipidemia, unspecified Category: Medical Qualifiers: Hyperlipidemia type: unspecified Qualified Code(s): E78.5 - Hyperlipidemia, unspecified Plan: No recent lipid panel in the chart, patient does not on a statin. Ordered lipid panel (3) Insulin pump in place: Code(s): Z96.41 - Presence of insulin pump (external) (internal) Category: Medical Plan: on Insulin pump HAs baqsimi , I have asked her to check expiratory date Prescribed urine ketone strips today, and provided guidance/if blood sugars are greater than 300 mg/dL she should check her urine ketones Has backup lantus In case of pump failure: To inject 40 units of Lantus Prescribed syringes today Needs upgrade to G7, messaged staff and arranging follow up with hospice educator (4) Obesity (BMI 30-39.9): Code(s): E66.9 - Obesity, unspecified Category: Medical Plan: Current BMI 37.8 kg per m2 with current weight at 206 lb. Advised to maintain 150 minutes of exercise weekly. Could consider possibly a GLP 1 agonist to help with losing weight and reducing insulin usage Plan I spent 30 minutes in reviewing the record, seeing the patient and documenting in the medical record. Orders: Orders 2 AMB Glucose Monitoring Today E10.65 - Type 1 diabetes mellitus with hyperglycemia TSH reflex Free T4 Today E10.65 - Type 1 diabetes mellitus with hyperglycemia, E78.5 - Hyperlipidemia, unspecified AMB Hemoglobin A1c Today E10.65 - Type 1 diabetes mellitus with hyperglycemia, Z13.9 - Encounter for screening, unspecified Comprehensive Met. Panel Today E10.65 - Type 1 diabetes mellitus with hyperglycemia, E78.5 - Hyperlipidemia, unspecified Lipid Panel Today E10.65 - Type 1 diabetes mellitus with hyperglycemia, E78.5 - Hyperlipidemia, unspecified Microalbumin, Random (w Creat) Today E10.65 - Type 1 diabetes mellitus with hyperglycemia, E78.5 - Hyperlipidemia, unspecified Platelet Count Today E10.65 - Type 1 diabetes mellitus with hyperglycemia, E78.5 - Hyperlipidemia, unspecified Medications: New 2 acetone (urine) test (Ketone Urine Test strips) As directed to check ketones when blood sugar greater than 300 mg/dl 100 ea 1RF insulin syringe,safety needle As directed to inject insulin in case of pump failure 100 ea 2RF Patient Instructions: Rule of 15 Treatment for Hypoglycemia (Low blood sugar) If your blood glucose is low (70 and below)*, follow the steps below to treat: Eat or drink something from the list below equal to 15 grams of carbohydrate (carb). Rest for 15 minutes Re-check your blood glucose. If it is still low, (below 70), repeat step 1 above. ? If your next meal is more than an hour away, you will need to eat one carbohydrate choice as a snack to keep your blood glucose from going low again. ?If you can't figure out why you have low blood glucose, call your healthcare provider, as your medicine may need to be adjusted. ?Always carry something with you to treat an insulin reaction. Use food from the list below. ? Foods equal to One Carbohydrate Choice (15 grams of carbohydrate): 3 Glucose ?tablets or 4 Dextrose tablets 4 ounces of fruit juice 5-6 ounces (about 1/2 can) of regular soda such as Coke or Pepsi ? 7-8 gummy or regular Life Savers ? 1 Tbsp. of sugar or jelly NOTE: If your blood sugar is less than 50, double the portion above for a total of 30 gm. ?Carbohydrate. ? Follow meal plan of 45-60 g of consistent carbohydrates at 3 meals each day and 15 g of carbohydrate at 1-2 snacks each day. Coding Level of Care Code Est Pt Level 4 (10473) Diagnoses Type 1 diabetes mellitus with hyperglycemia E10.65 Diabetes mellitus complication status: with hyperglycemia Hyperlipidemia, unspecified hyperlipidemia type E78.5 Hyperlipidemia type: unspecified Insulin pump in place Z96.41 Obesity (BMI 30-39.9) E66.9 CPT Codes Details - CPT: 16105 - Glucose monitoring, continuous-physician I&R ([id number]) Time Spent (min) 30
[2024-08-15 10:36] VITALS: BP 98/68; PULSE 77; O2SAT 98; BMI 37.8
[2024-08-15 10:47] LABS: Glucose, Whole Blood 124 mg/dL (60-115)
--- OUTSIDE RECORDS SUMMARY | 2024-08-15 12:04 | XMS_ITS | Clinical Summary ---
Author Organization [employer] Address [address] [place] [address] Care Team Providers Care Front Desk Admin Name Role Phone JorjeSuly SANJUANA Primary Care Provider [phone] Allergies Active Allergy Reactions Criticality Noted Date Comments Dexamethasone 02/04/2017 Other reaction(s): Itching of skin Dexamethasone Sodium Phosphate 02/04/2017 Medications cholecalciferol (Vitamin D-3) 10 MCG (400 UNIT) capsule Active glucose blood (FREESTYLE LITE) test strip Test blood sugars 5 times a day 12/10/19 22 Active Ibuprofen (Advil Migraine) capsule Take 1 capsule by mouth every 6 (six) hours. Active insulin lispro (HumaLOG KWIKPEN) 100 UNIT/ML injection Inject under the skin. Active Alcohol Swabs (Alcohol Prep) pads Use as directed to check blood sugar 5x daily Active Lancets 28G misc Use to check blood sugar 5 x daily Active Vit-Fe Fumarate-FA ( Low Iron) 27-1 MG tabletIndicatio ns:Health care maintenance Take 1 tablet by mouth in the morning. 90 tablet 3 08/14/19 23 Active BD Insulin Syringe U/F 31G X 16 0.5 ML misc USE DIRECTED TO INJECT 4X/DAY 06/18/19 23 Active Insulin Lispro 100 UNIT/ML solution INJECT UP TO 150 UNITS SUBCUTANEOUSLY via PUMP EVERY DAY DIRECTED 08/06/19 23 Active Active Problems Problem Noted Date Diagnosed Date Low vitamin D level 08/13/2022 Deep vein thrombosis (DVT) of lower extremity Overview (08/13/2022): During 4 years ago Foot pain 04/15/2022 Mixed anxiety and depressive disorder 03/17/2021 Overview (08/13/2022): Treating with holistic methods: Oregano oil, black cumin seeds with honey Vitamin D deficiency 02/09/2020 Type 1 diabetes mellitus 07/23/2017 Overview (02/04/2023): [place] [facility] Dexcom 6, Insulin pump with insulin lispro 03/19/22: Endo appt Type 1 diabetes mellitus with hyperglycemia Plan: This is a 30-year-old female with a history of type 1 diabetes being treated with an Omnipod pump and Dexcom G6 sensor with excellent glycemic control but hypoglycemia and no known microvascular or macrovascular complications. Plan is to decrease basal rate to 2.0 at MN and 2.4 u/hr at 5 AM. Patient is moving forward we getting control IQ will follow-up with the educator when she does . Patient also needs to go for labs including basic metabolic panel, TSH, free T4, lipid profile microalbumin to creatinine ratio Carpal tunnel syndrome 08/05/2016 Migraine without aura, not refractory 08/05/2016 Overview (08/13/2022): Triggers: Banana, chocolate, coffee Avoids triggers and it has prevented migraines for over 3 years Attention deficit hyperactivity disorder 013 Encounters Date Type Department Care Team Description 07/15/2024 Population Health Risk Score [facility] () Department [address] [place] [address] [id number] Provider, Population Health Generic from Last 3 Months Immunizations Name Administration Dates Next Due DTaP 08/08/1996, 5,08/28/1993,03/04,02/02/1992 Hib (HbOC) 03/04/1993,02/02/1992 IPV 08/28/1996, 5,03/04/1993,02/01 Influenza injectable quadriv alent IIV4 with preservative 02/22/2015 Influenza, IIV3, injectable 02/21/2004,1 ,02/15/2000,02/26 Influenza, Split (incl. lawrence fied surface antigen) 05/16/2013 Influenza, live, intranasal 03/18/2012 MMR 08/08/1996,03/04/1993 Pneumococcal Polysaccharide PPSV23 08/05/2016 Tdap 03/17/2021,03/20/2005 Family History Medical History Relation Name Comments Thyroid disease Brother Diabetes type I Maternal Grandfather Breast cancer Maternal Grandmother Depression Mother Relation Name Status Comments Brother Maternal Grandfather Maternal Grandmother Mother Social History Tobacco Use Types Packs/Day Years Used Date Smoking Tobacco: Former Cigarettes 1 7 Smokeless Tobacco: Never Tobacco Cessation:Counseling Given: Not Answered Comments:Quit at age 24 Alcohol Use Standard Drinks/Week Comments Not Currently 5 (1 standard drink = 0.6 oz pure alcohol) Drank a bottle of wine 2-3 times a week. 2 weeks ago. Depression Answer Date Recorded Patient Health Questionnaire-9 Score 0 08/13/2022 Housing Stability Answer Date Recorded What is your housing situation today? I have dex [place] 02/19/[address] you li ve. Do you have problems with any of the following? None of the above 02/19/2023 Food Insecurity Answer Date Recorded Within the past 12 months, y ou worried that your food would run out before you got money to buy more: Never True 02/19/2023 Within the past 12 months,th e food you bought just didn't last and you didn't have enough money to get more: Never True Transportation Answer Date Recorded In the past 12 months, has l ack of transportation kept you from medical appts, meetings, work or from getting things needed for daily living? Yes, it has kept me from medical appointments or getting medications. 02/07/2023 Utilities Answer Date Recorded In the past 12 months, has t he [employer], gas, oil or water company threatened to shut off services in your home? No 02/19/2023 Depression Answer Date Recorded Patient Health Questionnaire-2 Score 0 08/13/2022 Comments Unknown Sex and Gender Information Value Date Recorded Sex Assigned at Female 03/03/2022 10:14 AM EDT Legal Sex Female 10:14 AM EDT Gender Identity Female 03/03/2022 10:14 AM EDT Sexual Orientation Straight 03/03/2022 10 :14 AM EDT Last Filed Vital Signs Vital Sign Reading Time Taken Comments Blood Pressure 113/76 08/13/2022 4:02 PM EDT Pulse 82 08/13/2022 4:02 PM EDT Temperature 36.8 ??C (98.2 ??F) 08/13/2022 4:02 PM ED T Respiratory Rate 16 08/13/2022 4:02 PM EDT Oxygen Saturation 100% 08/13/2022 4:02 PM EDT Inhaled Oxygen Concentration - - Weight 91.4 kg (201 lb 6.4 oz) 08/13/2022 4:02 PM EDT Height 160 cm (5' 3 ) 08/13/2022 4:02 PM EDT Body Mass Index 35.68 08/13/2022 4:02 PM EDT Plan of Treatment Health Maintenance Due Date Last Done Comments HIV Screening 1991 Hepatitis B Vaccines (3 of 3 - 3-dose series) 03/07/1994 01/10/1994, 08/28/1993, 1991 Diabetes: Foot Exam 10/08/2001 Alcohol/Substance Use Screening 2003 Family Planning (PISQ) 10/08/2006 Hepatitis C Screening 10/08/2009 Pap Smear 10/08/2012 Pneumococcal Vaccine: Pediatrics (0 to 5 Years) and At-Risk Patients (6 to 49) Years) (2 of 2 - PCV) 08/05/2017 08/05/2016 Lipid Panel 07/09/2021 07/09/2020 Cervical Cancer Screening 10/08/2021 HPV/Cotest 10/08/2021 Diabetes: Hemoglobin A1C 06/21/2022 022, 07/09/2020, 07/09/2020 Diabetes: Urine Protein Screening 03/21/2023 03/21/2022, 07/09/2020 Depression Screening 08/14/2023 08/13/2022, 08/14/19 23 SDOH Screening 08/14/2023 08/13/2022 Tobacco Screening 09/23/2023 09/22/2022 COVID-19 Vaccine ( season) 2024 Influenza Vaccine (#1) 2024 8, 02/22/2015, 05/16/2013, Additional history exists Eye Exam 09/22/2024 09/22/2022, 09/02, 09/22/2022, Additional history exists DTaP/Tdap/Td Vaccines (10 - Td or Tdap) 03/17/2031 03/17/2021, 12/24/2017, 11/18/2014, Additional history exists Zoster Vaccines (1 of 2) 10/08/2041 RSV Patients and Patients Aged 60 years or older (1 - 1-dose 75+ series) 10/08/2066 HIB Vaccines Completed 03/04/1993, 02/02/1992 IPV Vaccines Completed 08/28/1996, 07/03, 03/04/1993, Additional history exists HPV Vaccines Aged Out No longer eligi ble based on patient's age to complete this topic Hepatitis A Vaccines Aged Out No long er eligible based on patient's age to complete this topic Meningococcal Vaccine Aged Out No denita nael eligible based on patient's age to complete this topic RSV under 20 months Aged Out No longe r eligible based on patient's age to complete this topic Rotavirus Vaccines Aged Out No longer eligible based on patient's age to complete this topic Procedures Procedure Name Priority Date/Time Associated Diagnosis Comments [facility] HISTORICAL MICROALBUMIN/CREATIN INE RATIO, RANDOM URINE Routine 03/21/2022 10:15 AM EST [facility] HISTORICAL HEMOGLOBIN A1C Routine 03/21/2022 10:15 AM EST [facility] HISTORICAL LIPID PANEL Routine 07/09/2020 3:41 PM EST from Last 3 Months or Most Recently Relevant to Health Maintenance Results * MICROALBUMIN/CREATININE RATIO, RANDOM URINE (03/21/2022 10:15 AM EST) Creatinine Urine 102.46 mg/dL [facility]GACY [facility] Microalbum/Creati nine Ratio Ur TNP ug/mg cr [facility]GAC[facility] Comment: Unable to calculate albumin/creatinine ratio due to low microalbumin or creatinine result. Microalbumin Urine <5.0 mg/L [facility]GAC[facility] 03/21/2022 10:1 5 AM EST us Arnie Turner MD HISTORICAL/NON ORDERABLE LABS Final Result [facility]VERTED [facility]GACY LAB[facility] * HEMOGLOBIN A1C (03/21/2022 10:15 AM EST) Estimated Average Glucose 148 mg/dL [facility] Comment: eAG = Estimated average glucose which is %A1C expressed as average glucose, using the formula of the [id number] Average Glucose study (ADAG), Diabetes Care, Vol.31,#8, Dec. 2007 Hemoglobin A1c % 6.8 % [facility] Comment: ?Hemoglobin A1C Reference Range ?Adults: ??4.8 - 6.0 % ?Non diabetic: ??< 6.0 % ?Goal: ??< 7.0 % Additional Action Suggested: ??> 8.0 % ?? Note: ??Hemoglobin A1c results are invalid for patients ?with abnormal amounts of HbF. ??Blood transfusions ?may impact the HbA1c concentration in the patient ?sample. 03/21/2022 10:1 5 AM EST us Arnie Turner MD HISTORICAL/NON ORDERABLE LABS Final Result CONVERTED LEGACY LABS * (ABNORMAL) LIPID PANEL (07/09/2020 3:41 PM EST) Cholesterol 204 mg/dL [facility] Comment: Desirable Cholesterol: ?less than 200 mg/dL Borderline High Cholesterol: ??200-239 mg/dL High Cholesterol: ? greater than 239 mg/dL HDL Cholesterol 51 mg/dL [facility] Comment: Desirable HDL: ??greater than 40 mg/dL ?? Note: This HDL assay may give artificially ? low results in patients with liver disease. LDL Cholesterol Calculated 140 mg/dl [facility] Comment: Desirable LDL: ? less than 100 mg/dL Near Optimal/Above Optimal LDL: ??110-129 mg/dL Borderline High LDL: ? 130-159 mg/dL High LDL: ?160-189 mg/dL Very High LDL: ? greater than or equal to ?190 mg/dL Triglycerides 68 mg/dL [facility] Comment: Desirable Triglyceride: ? less than 150 mg/dL Borderline High Triglyceride ??150-199 mg/dL High Triglyceride: ?200-499 mg/dL Very High Triglyceride: ? greater than or equal to ? 5OO mg/dL Alanine Aminotransferase 12 0 - 31 U/L [facility] Albumin Level 4.3 3.5 - 5.0 g/dL [facility] Alkaline Phosphatase 98 39 - 117 U/L [facility] Anion Gap 11(L) 12 - 20 [facility] Comment: Aspartate Amino Transferase 18 5 - 31 U/L [facility] Bilirubin Total 0.7 0.0 - 1.0 mg/dL [facility] Blood Urea Nitrogen 14 9 - 16 mg/dL [facility] Calcium 9.5 8.4 - 10.2 mg/dL [facility] Carbon Dioxide 28 22 - 29 mmol/L [facility] Chloride 104 96 - 108 mmol/L [facility] Creatinine, Serum 0.91 0.5 - 1.4 mg/dL [facility] Estimated Glomerular Filt Rate >60 [facility] Comment: NOTE: ??For -Slovak individuals, multiply the result ?by 1.210. ?? Chronic Kidney Disease: ??Estimated GFR < 60 mL/min/1.73m2 Severe Kidney Disease: ??Estimated GFR < 15 mL/min/1.73m2 Glucose Random 135(H) 60 - 115 mg/dL [facility] Potassium 4.1 3.3 - 5.1 mmol/L [facility] Sodium 139 135 - 145 mmol/L [facility] Total Protein 7.7 6.5 - 8.0 g/dL [facility] 07/09/2020 3:41 PM EST us Historical Provider HISTORICAL/NON ORDERABLE LABS Final Result [facility] [address] from Last 3 Months or Most Recently Relevant to Health Maintenance Insurance [employer] Care Teams Front Desk Admin Relationship Specialty Start Date End Date Suly Recinos NP [address] [place] [id number] PCP - General Family Medicine 10/19/23
== END 2024-08-15 11:21 | disposition home or self-care (01) ==
PROVIDERS: PCP Registered Nurse; Visit Provider Student in an Organized Health Care Education/Training Program
DX: E10.65 Type 1 diabetes mellitus with hyperglycemia (principal); E78.5 Hyperlipidemia, unspecified; Z96.41 Presence of insulin pump (external) (internal); E66.9 Obesity, unspecified; Z13.9 Encounter for screening, unspecified
CPT/HCPCS: 95251; 99214

== ENCOUNTER 2024-09-05 09:42 | Outpatient (AMB) | payer MEDICAID, SELFPAY ==
--- OUTSIDE RECORDS SUMMARY | 2024-09-05 10:36 | XMS_ITS | Clinical Summary ---
Author Organization [employer] Address [address] [facility] 7t [place] [address] Care Team Providers Care Agricultural Consultant Name Role Phone JorjeSuly SANJUANA Primary Care Provider Allergies Active Allergy Reactions Criticality Noted Date [...] mellitus 07/23/2017 Overview (02/04/2023): [place] [facility]o Dexcom 6, Insulin [...] Team Description 07/15/2024 Population Health Risk Score [facility] () Department [address] [place] [address] [phone] Provider, Population Health Generic from Last 3 [...] the past 12 months, has t he [employer], gas, oil or water company threatened to [...] Procedure Name Priority Date/Time Associated Diagnosis Comments [facility] HISTORICAL MICROALBUMIN/CREATIN INE RATIO, RANDOM URINE Routine 03/21/2022 10:15 AM EST [facility] HISTORICAL HEMOGLOBIN A1C Routine 03/21/2022 10:15 AM EST [facility] HISTORICAL LIPID PANEL Routine 07/09/2020 3:41 PM [...] average glucose, using the formula of the [id number] Average Glucose study (ADAG), Diabetes Care, Vol.31,#8, [...] to ?190 mg/dL Triglycerides 68 mg/dL [facility] Comment: Desirable Triglyceride: ? less than 150 mg/dL Borderline High Triglyceride ??150-199 mg/dL High Triglyceride: ?200-499 mg/dL Very High Triglyceride: ? greater than or equal to ? 5OO mg/dL Alanine Aminotransferase 12 0 - 31 U/L [facility] Albumin Level 4.3 3.5 - 5.0 g/dL [facility] Alkaline Phosphatase 98 39 - 117 U/L [facility] Anion Gap 11(L) 12 - 20 [facility] Comment: Aspartate Amino Transferase 18 5 - 31 U/L [facility] Bilirubin Total 0.7 0.0 - 1.0 mg/dL [facility] Blood Urea Nitrogen 14 9 - 16 mg/dL [facility] Calcium 9.5 8.4 - 10.2 mg/dL [facility] Carbon Dioxide 28 22 - 29 mmol/L [facility] Chloride 104 96 - 108 mmol/L [facility] Creatinine, Serum 0.91 0.5 - 1.4 mg/dL [facility] Estimated Glomerular Filt Rate >60 [facility] Comment: NOTE: ??For -Sammarinese individuals, multiply the result ?by 1.210. ?? Chronic Kidney Disease: ??Estimated GFR < 60 mL/min/1.73m2 Severe Kidney Disease: ??Estimated GFR < 15 mL/min/1.73m2 Glucose Random 135(H) 60 - 115 mg/dL [facility] Potassium 4.1 3.3 - 5.1 mmol/L [facility] Sodium 139 135 - 145 mmol/L [facility] Total Protein 7.7 6.5 - 8.0 g/dL [facility] 07/09/2020 3:41 PM EST us Historical Provider HISTORICAL/NON ORDERABLE LABS Final Result [facility] [address] from Last 3 Months or Most Recently Relevant to Health Maintenance Insurance [employer] C[employer] Care Teams Agricultural Consultant Relationship Specialty Start Date End Date Suly Recinos NP [address] [place] [id number] PCP - General Family Medicine 10/19/23
--- NOTE | 2024-09-05 10:56 | MHC.AMDMED ---
Intake Intake Visit Reasons: Type 1 DM Vamp Throater Required: No Accompanied by: Self / Same As Patient Allergies dexamethasone [From [facility]] Adverse Reaction (Intermediate, Verified 08/15/24 10:38) BURNING SENSATION HPI Comprehensive Diabetes Asmnt Most Recent Diabetes Results: Microalb/Creat Ratio TNP 08/15/24 Cholesterol 217 mg/dL (<200) H 08/15/24 HDL Cholesterol 55 mg/dL (>40) 08/15/24 Triglycerides 58 mg/dL (<150) 08/15/24 Creatinine 0.80 mg/dL (0.5-1.4) 08/15/24 Blood Urea Nitrogen 11 mg/dL (9-16) 08/15/24 Sodium 139 mmol/L (135-145) 08/15/24 Potassium 4.1 mmol/L (3.3-5.1) 08/15/24 Chloride 106 mmol/L (96-108) 08/15/24 Carbon Dioxide 28 mmol/L (22-29) 08/15/24 Calcium 9.8 mg/dL (8.4-10.2) 08/15/24 AST 21 U/L (5-31) 08/15/24 ALT 11 U/L (0-31) 08/15/24 Total Protein 8.0 g/dL (6.5-8.0) 08/15/24 Albumin 4.4 g/dL (3.5-5.0) 08/15/24 [facility] Medical History (Updated 08/15/24 @ 11:44 by Zehra Early MD) Obesity (BMI 30-39.9) Insulin pump in place Vitamin D deficiency HLD (hyperlipidemia) HTN (hypertension) T1DM (type 1 diabetes mellitus) Surgical History Hx of tooth extraction Family History Father No problems noted. Mother CTS (carpal tunnel syndrome) Social History Household Members: Children Household Members Other:: daughter Alcohol intake: former Patient Tobacco Use Status: Former Tobacco user Assessment & Plan Assessment & Plan (1) T1DM (type 1 diabetes mellitus): Code(s): E10.9 - Type 1 diabetes mellitus without complications Qualifiers: Diabetes mellitus complication status: with hyperglycemia Qualified Code(s): E10.65 - Type 1 diabetes mellitus with hyperglycemia Plan: Patient presents for pump training for T-Slim pump with control IQ integrated with Dexcom G6 The following topics were reviewed today: -Extended Bolus - upgraded insulin pump to be compatible with Dexcom G7 ??? High Alert: 200mg/dl ??? Low Alert: 80 mg/dl Patient's average glucose for the past 14 days mg/dL Patient above target % Patient at target % Patient below target % At today's visit updated insulin pump to be compatible with Dexcom G7 sensors, set up T connect [place], connected patient is insulin pump to T connect Insulin delivery settings Program insulin to carb ratio, correction factor, target blood glucose, suspend or resume insulin delivery, bolus limit and basal limit settings Inserting infusion set or starting pod Troubleshooting after starting new pod or inserting new insulin set: Occlusion, adhesive tape sensitivity, redness Check BG 2 hours after site change Safety information: Patient was able to insert insulin set today without difficulty. Patient understands the basic concepts of pump therapy, how to give insulin for meals and snacks, how to troubleshoot for hyper and hypoglycemia. Setting verified by CDCES, no changes made to pump settings Basal rate(s) (units/hour) : 12 AM to 5:30 AM? 1.8 units / hr 5:30 AM? to 1:30 PM? 1.9 units / hr 1:30 PM to 9:30 PM 2.10 units / hr 9:30 PM to 12 AM 1.9 units / hr Bolus setting Insulin Carbohydrate Ratio (s) 12 AM to 12 AM 1:10 Correction Factor / Sensitivity Factor 12 AM to 12 AM 1:40 Active Insulin Time:? 3 hours Control IQ Target: 110 mg/dL Target(s): 12 AM to 12 AM 120 Patient Instructions: Follow-up in 1 month Dexcom G7 sensor training Coding Level of Care Code Est Pt Level 1 (15816) Diagnoses Type 1 diabetes mellitus with hyperglycemia E10.65 Diabetes mellitus complication status: with hyperglycemia
== END 2024-09-05 11:01 | disposition home or self-care (01) ==
LOC: HO.ENCR 09:42
PROVIDERS: PCP Registered Nurse; Visit Provider Registered Nurse Diabetes Educator
DX: E10.65 Type 1 diabetes mellitus with hyperglycemia (principal)

== ENCOUNTER → 2024-09-05 09:42 | Outpatient (BNVA) | payer MEDICAID, SELFPAY | PROVIDERS: PCP Registered Nurse; Visit Provider Registered Nurse Diabetes Educator | DX: E10.65 Type 1 diabetes mellitus with hyperglycemia (principal); Z96.41 Presence of insulin pump (external) (internal); Z79.4 Long term (current) use of insulin | CPT/HCPCS: 99211 ==

== ENCOUNTER 2024-10-17 09:38 | Outpatient (AMB) | payer MEDICAID, SELFPAY ==
--- NOTE | 2024-10-17 10:01 | MHC.AMDMED ---
Intake Intake Visit Reasons: 60 min Assistant Merchandise Manager Required: No Accompanied by: Self / Same As Patient Allergies dexamethasone [From [facility]] Adverse Reaction (Intermediate, Verified 08/15/24 10:38) BURNING SENSATION HPI Comprehensive Diabetes Asmnt Most Recent Diabetes Results: Hemoglobin A1c 6.7 % 09/06/18 Microalb/Creat Ratio TNP 08/15/24 Cholesterol 217 mg/dL (<200) H 08/15/24 HDL Cholesterol 55 mg/dL (>40) 08/15/24 Triglycerides 58 mg/dL (<150) 08/15/24 Creatinine 0.80 mg/dL (0.5-1.4) 08/15/24 Blood Urea Nitrogen 11 mg/dL (9-16) 08/15/24 Sodium 139 mmol/L (135-145) 08/15/24 Potassium 4.1 mmol/L (3.3-5.1) 08/15/24 Chloride 106 mmol/L (96-108) 08/15/24 Carbon Dioxide 28 mmol/L (22-29) 08/15/24 Calcium 9.8 mg/dL (8.4-10.2) 08/15/24 AST 21 U/L (5-31) 08/15/24 ALT 11 U/L (0-31) 08/15/24 Total Protein 8.0 g/dL (6.5-8.0) 08/15/24 Albumin 4.4 g/dL (3.5-5.0) 08/15/24 [facility] Medical History (Updated 08/15/24 @ 11:44 by Zehra Early MD) Obesity (BMI 30-39.9) Insulin pump in place Vitamin D deficiency HLD (hyperlipidemia) HTN (hypertension) T1DM (type 1 diabetes mellitus) Surgical History Hx of tooth extraction Family History Father No problems noted. Mother CTS (carpal tunnel syndrome) Social History Household Members: Children Household Members Other:: daughter Alcohol intake: former Patient Tobacco Use Status: Former Tobacco user Assessment & Plan Assessment & Plan (1) T1DM (type 1 diabetes mellitus): Code(s): E10.9 - Type 1 diabetes mellitus without complications Qualifiers: Diabetes mellitus complication status: with hyperglycemia Qualified Code(s): E10.65 - Type 1 diabetes mellitus with hyperglycemia Plan: Patient presents for pump training for T-Slim pump with control IQ integrated with Dexcom G7 The following topics were reviewed today: -Travel and insulin pump preparation - rules about testing for ketones ??? High Alert: 200mg/dl ??? Low Alert: 80 mg/dl Patient has already transitioned to Dexcom G7 sensors Patient reports she is going on vacation, reviewed the importance of carrying extra insulin supplies, ketone strips while on vacation. Patient had 1 episode of prolonged hyperglycemia. Patient reports testing for ketones, trace amount in urine. Reviewed with patient the rule about testing for ketones, written instructions given Troubleshooting after starting new pod or inserting new insulin set: Occlusion, adhesive tape sensitivity, redness Check BG 2 hours after site change Safety information: Importance of a backup plan, for manual injections, proper prescriptions and emergency supplies ketone strips, and rules for testing for ketones Patient understands the basic concepts of pump therapy, how to give insulin for meals and snacks, how to troubleshoot for hyper and hypoglycemia. Setting verified by CDCES, no changes made to pump settings Basal rate(s) (units/hour) : 12 AM to 5:30 AM? 1.8 units / hr 5:30 AM? to 1:30 PM? 1.9 units / hr 1:30 PM to 9:30 PM 2.10 units / hr 9:30 PM to 12 AM 1.9 units / hr Bolus setting Insulin Carbohydrate Ratio (s) 12 AM to 12 AM 1:10 Correction Factor / Sensitivity Factor 12 AM to 12 AM 1:40 Active Insulin Time:? 3 hours Control IQ Target: 110 mg/dL Target(s): 12 AM to 12 AM 120 Patient Instructions: DIABETES PROBLEMS HOMECARE INSTRUCTIONS? for High Blood Sugar and When to Test for Ketones Hyperglycemia is the technical term for high blood glucose (blood sugar). High blood sugar happens when the body has too little insulin or when the body can't use insulin properly. What causes hyperglycemia? A number of things can cause hyperglycemia: If you have type 1, you may not have given yourself enough insulin. ? If you have type 2, your body may have enough insulin, but it is not as effective as it should be. You ate more than planned or exercised less than planned. You have stress from an illness, such as a cold or flu. You have other stress, such as family conflicts or school or dating problems. How to lower your blood sugar level. ? Take medications as directed by physician. ? Drink extra water or noncaffeinated, nonsugared drinks to prevented hydration. ? Exercise if you are not sick However, if your blood sugar is above 250 mg/dl, check your urine for ketones. If you have ketones, do not exercise Exercising when ketones are present may make your blood sugar level go even higher. You'll need to work with your doctor to find the safest way for you to lower your blood sugar level. Regularly check blood sugar or urine for sugar and acetone during illness. Diabetic ketoacidosis (DKA) Is serious condition that can lead to diabetic coma (passing out for a long time) or even . When your cells don't get the glucose they need for energy, your body begins to burn fat for energy, which produces ketones. Ketones are chemicals that the body creates when it breaks down fat to use for energy. The body does this when it doesn?t have enough insulin to use glucose, the body?s normal source of energy. When ketones build up in the blood, they make it more acidic. They are a warning sign that your diabetes is out of control or that you are getting sick. Symptoms of Diabetic Ketoacidosis (DKA) ? DKA usually develops slowly. But when vomiting occurs, this life-threatening condition can develop in a few hours. Early symptoms include the following: ? Thirst or a very dry mouth ? Frequent urination ? High blood glucose (blood sugar) levels ? High levels of ketones in the urine ? Then, other symptoms appear: ? Constantly feeling tired ? Dry or flushed skin ? Nausea, vomiting, or abdominal pain ? (Vomiting can be caused by many illnesses, not just ketoacidosis. If vomiting continues for more than 2 hours, contact your health care provider.) ? Difficulty breathing ? Fruity odor on breath ? A hard time paying attention, or confusion When should you test for ketones? It is advisable to check for ketones under the following conditions when: Your blood glucose is higher than 250mg/dl. Feeling nauseated, throwing up, or have pains in your abdominal region. Have a cold or flu. Have general body fatigue. Feel thirsty or have a very dry mouth. Have flushed skin. Have a fruity breath or a hard time breathing. You feel perplexed or in fog. How to Test Urine for Ketones You can detect ketones with a simple urine test using a test strip, similar to a blood testing strip. Ask your health care provider when and how you should test for ketones. Many experts advise to check your urine for ketones when your blood glucose is more than 250 mg/dl. When you are ill (when you have a cold or the flu, for example), check for ketones every 4 to 6 hours. And check every 4 to 6 hours when your blood sugar is more than 250 mg/dl. Also, check for ketones when you have any symptoms of DKA. How to lower your blood sugar level. ? Take medications as directed by physician. ? Drink extra water or noncaffeinated, nonsugared drinks to prevented hydration. ? Exercise if you are not sick However, if your blood sugar is above 250 mg/dl, check your urine for ketones. If you have ketones, do not exercise Exercising when ketones are present may make your blood sugar level go even higher. You'll need to work with your doctor to find the safest way for you to lower your blood sugar level. Regularly check blood sugar or urine for sugar and acetone during illness Coding Level of Care Code Est Pt Level 1 (83417) Diagnoses Type 1 diabetes mellitus with hyperglycemia E10.65 Diabetes mellitus complication status: with hyperglycemia
--- OUTSIDE RECORDS SUMMARY | 2024-10-17 10:29 | XMS_ITS | Clinical Summary ---
Author Organization [employer] Address [address] [facility] 7t [place] [address] Care Team Providers Care Bryologist Name Role Phone Suly Recinos SANJUANA Primary Care Provider [phone] Allergies Active Allergy Reactions Criticality Noted Date [...] Active BD Insulin Syringe U/F 31G X 09/16 0.5 ML misc USE DIRECTED TO INJECT [...] mellitus 07/23/2017 Overview (02/04/2023): [place] [facility] Dexcom 6, Insulin pump with insulin [...] 3 years Attention deficit hyperactivity disorder 013 Immunizations Immunization Administration Dates Next Due DTaP 08/08/1996, 5,08/28/1993,03/04,02/02/1992 [...] the past 12 months, has t he electric, gas, oil or water company threatened to [...] kg (201 lb 6.4 oz) 08/13/2022 4:02 P M EDT Height 160 cm (5' 3 ) 08/13/2022 4:02 PM EDT Body Mass Index 35.68 08/13/2022 4:02 PM EDT Plan of Treatment Health Maintenance Due Date Last Done Comments HIV Screening 1991 Disability Screening 1991 Hepatitis B Vaccines (3 of 3 - 3-dose series) 03/07/1994 01/10/1994, 08/28/1993, 1991 Diabetes: Foot Exam 10/08/2001 Alcohol/Substance Use Screening 2003 Family Planning (PISQ) 10/08/2006 Hepatitis C Screening 10/08/2009 Pap Smear 10/08/2012 Pneumococcal Vaccine: Pediatrics (0 to 5 Years) and At-Risk Patients (6 to 49) Years (2 of 2 - PCV) 08/05/2017 08/05/2016 Lipid Panel 07/09/2021 07/09/2020 Cervical Cancer Screening 10/08/2021 HPV/Cotest 10/08/2021 Diabetes: Hemoglobin A1C 06/21/2022 022, 07/09/2020, 07/09/2020 Diabetes: Urine Protein Screening 03/21/2023 03/21/2022, 07/09/2020 Depression Screening 08/14/2023 08/13/2022, 08/14/19 23 SDOH Screening 08/14/2023 08/13/2022 Tobacco Screening 09/23/2023 09/22/2022 COVID-19 Vaccine ( season) 2024 Eye Exam 09/22/2024 09/22/2022, 09/02, 09/22/2022, Additional history exists Influenza Vaccine (Season Ended) 2025 02/09/2018, 02/22/2015, 05/16/2013, Additional history exists DTaP/Tdap/Td Vaccines (10 - [...] patient's age to complete this topic Meningococcal B Vaccine Aged Out No l onger eligible based on patient's age to complete [...] Procedure Name Priority Date/Time Associated Diagnosis Comments [facility] HISTORICAL MICROALBUMIN/CREATIN INE RATIO, RANDOM URINE Routine 03/21/2022 10:15 AM EST [facility] HISTORICAL HEMOGLOBIN A1C Routine 03/21/2022 10:15 AM EST [facility] HISTORICAL LIPID PANEL Routine 07/09/2020 3:41 PM EST from Last 3 Months or Most Recently Relevant to Health Maintenance Results * MICROALBUMIN/CREATININE RATIO, RANDOM URINE (03/21/2022 10:15 AM EST) Pathologist [facility] Creatinine Urine 102.46 mg/dL [facility] Microalbum/Creati nine Ratio Ur TNP ug/mg cr [facility] Comment: Unable to calculate albumin/creatinine ratio due to low microalbumin or creatinine result. Microalbumin Urine <5.0 mg/L [facility] 03/21/2022 10:1 5 AM EST us Arnie Turner MD HISTORICAL/NON ORDERABLE LABS Final Result [facility] * HEMOGLOBIN A1C (03/21/2022 10:15 AM EST) Pathologist [facility] Estimated Average Glucose 148 mg/dL [facility] Comment: eAG = Estimated average glucose which is %A1C expressed as average glucose, using the formula of the [id number] Average Glucose study (ADAG), Diabetes Care, Vol.31,#8, [...] patient ?sample. 03/21/2022 10:1 5 AM EST Arnie Turner MD HISTORICAL/NON ORDERABLE LABS Final Result [facility]GACY [facility] * (ABNORMAL) LIPID PANEL (07/09/2020 3:41 PM EST) [facility] Cholesterol 204 mg/dL [facility] Comment: Desirable Cholesterol: ?less than 200 mg/dL Borderline High Cholesterol: ??200-239 mg/dL High Cholesterol: ? greater than 239 mg/dL HDL Cholesterol 51 mg/dL [facility] Comment: Desirable HDL: ??greater than 40 mg/dL ?? Note: This HDL assay may give artificially ? low results in patients with liver disease. LDL Cholesterol Calculated 140 mg/dl [facility] Comment: Desirable LDL: ? less than 100 mg/dL Near Optimal/Above Optimal LDL: ??110-129 mg/dL Borderline High LDL: ? 130-159 mg/dL High LDL: ?160-189 mg/dL Very High LDL: ? greater than or equal to ?190 mg/dL Triglycerides 68 mg/dL [facility] Comment: Desirable Triglyceride: ? less than 150 mg/dL Borderline High Triglyceride ??150-199 mg/dL High Triglyceride: ?200-499 mg/dL Very High Triglyceride: ? greater than or equal to ? 5OO mg/dL Alanine Aminotransferase 12 0 - 31 U/L [facility] Albumin Level 4.3 3.5 - 5.0 g/dL [facility] Alkaline Phosphatase 98 39 - 117 U/L [facility] Anion Gap 11(L) 12 - 20 [facility] Comment: Aspartate Amino Transferase 18 5 - 31 U/L [facility] Bilirubin Total 0.7 0.0 - 1.0 mg/dL [facility] Blood Urea Nitrogen 14 9 - 16 mg/dL [facility] Calcium 9.5 8.4 - 10.2 mg/dL [facility] Carbon Dioxide 28 22 - 29 mmol/L [facility] Chloride 104 96 - 108 mmol/L [facility] Creatinine, Serum 0.91 0.5 - 1.4 mg/dL [facility] Estimated Glomerular Filt Rate >60 [facility] Comment: NOTE: ??For -[place] individuals, multiply the result ?by 210. ?? Chronic Kidney Disease: ??Estimated GFR < 60 mL/min/1.73m2 Severe Kidney Disease: ??Estimated GFR < 15 mL/min/1.73m2 Glucose Random 135(H) 60 - 115 mg/dL [facility] Potassium 4.1 3.3 - 5.1 mmol/L [facility] Sodium 139 135 - 145 mmol/L [facility] Total Protein 7.7 6.5 - 8.0 g/dL [facility] 07/09/2020 3:41 PM EST us Historical Provider HISTORICAL/NON ORDERABLE LABS Final Result [facility] [address] from Last 3 Months or Most Recently Relevant to Health Maintenance Insurance Care Teams Bryologist Relationship Specialty Start Date End Date Suly Recinos NP [address] [place] [id number] PCP - General Family Medicine 10/19/23
== END 2024-10-17 10:37 | disposition home or self-care (01) ==
LOC: HO.ENCR 09:38
PROVIDERS: PCP Registered Nurse; Visit Provider Registered Nurse Diabetes Educator
DX: E10.65 Type 1 diabetes mellitus with hyperglycemia (principal)

== ENCOUNTER → 2024-10-17 09:38 | Outpatient (BNVA) | payer MEDICAID, SELFPAY | PROVIDERS: PCP Registered Nurse; Visit Provider Registered Nurse Diabetes Educator | DX: E10.65 Type 1 diabetes mellitus with hyperglycemia (principal) | CPT/HCPCS: 99211 ==